=== PATIENT | male | born 2000 | race Caucasian/White ===

== ENCOUNTER 2021-01-30 14:00 | Emergency (ER) | payer BC, SELFPAY ==
--- NOTE | ~2021-01-30 | CT_ITS ---
EXAMINATION: CT abdomen pelvis wo con DATE: 01/30/2021 16:28 INDICATION: Right flank pain TECHNIQUE: Computed tomography (CT) of the abdomen and pelvis was performed without intravenous contr ast. Automated exposure control and iterative reconstruction technique were employed. Exam dose: 165 .01 mGy-cm total exam DLP. COMPARISON: 01/30/2021 KUB FINDINGS: The lung bases are clear. Normal heart size. No pericardial or pleural effusion. The liver, gallbladder, bile ducts spleen, pancreas, pancreatic duct, and adrenal glands are unremark able. No renal mass lesion or scarring or renal calculus. There is a 4.3 x 9 mm distal right ureteral calculus with attenuation of 1020 Hounsfield units. There is mild right hydroureteronephrosis. No other urinary tract calculus. Normal caliber of the abdominal aorta. No intraperitoneal or retroperitoneal or pelvic mass lesion or adenopathy or ascites. Normal appendix. No bowel obstruction or intraperitoneal free air is detected. Included skeletal structures are unremarkable. IMPRESSION: 4.3 x 9 mm distal right ureteral calcified calculus with mild right hydroureteronephrosi s Reviewed, dictated and finalized at [facility] Reviewed, dictated and finalized at [facility] IMPRESSION: 4.3 x 9 mm distal right ureteral calcified calculus with mild righ t hydroureteronephrosis
--- NOTE | ~2021-01-30 | XR_ITS ---
XR abdomen/kub 1V DATE: 01/30/2021 15:52 INDICATION: Right flank pain. History kidney stone. TECHNIQUE: AP view. COMPARISON: None Findings: there is an approximately 3.5 x 6 mm calcification overlying the right ureterovesical area, likely a right ureterovesical junction calcified calculus. No other abnormal calcification is evident. The psoas shadows are intact. No visceromegaly is evident . No bowel obstruction. Included skeletal structures are unremarkable. IMPRESSION: 3.5 x 6 mm probable right ureterovesical junction calcified calculus Reviewed, dictated and finalized at [facility] Reviewed, dictated and finalized at [facility]. IMPRESSION: 3.5 x 6 mm probable right ureterovesical junction calcified calculu s
[2021-01-30 14:28] VITALS: BP 145/82; PULSE 104; RESP 18; TEMP 35.7; O2SAT 97
[2021-01-30 14:48] LABS: Basophils Absolute Auto 0.1 K/mm3 (0.0-0.1); Eosinophils Percent Auto 0.2 % (0-4.4); Hematocrit 44.4 % (42.0-52.0); Hemoglobin 16.2 g/dL (14.0-18.0); Immature Granulocyte Absolute 0.02 K/mm3 (0.00-0.031); Immature Granulocyte Percent A 0.2 % (0-0.5); Lymphocytes Absolute Auto 1.53 K/mm3 (0.9-3.2); Lymphocytes Percent Auto 18.9 % (18.3-44.2); Mean Corpuscular HGB Conc 36.5 g/dl (32-36); Mean Corpuscular Hemoglobin 29.7 pg (26-34); Mean Corpuscular Volume 81.3 fl (80-100); Mean Platelet Volume 8.9 fl (7.4-10.4); Monocytes Absolute Auto 0.4 K/mm3 (0.1-0.6); Monocytes Percent Auto 4.8 % (2.6-8.5); Neutrophils Percent Auto 74.9 % (45.5-73.1); Platelet Count Result 308 k/mm3 (150-375); Red Blood Count 5.46 M/mm3 (4.6-6.20); White Blood Count 8.1 K/mm3 (4.5-10.0)
[2021-01-30 14:59] LABS: Anion Gap 14 mmol/L (8-16); Blood Urea Nitrogen 11 mg/dL (9-20); Calcium 9.7 mg/dL (8.4-10.2); Carbon Dioxide 25 mmol/L (22-30); Chloride 101 mmol/L (98-107); Estimated CRCL calculation 87 ml/min; Estimated Glomerular Filt Rate > 60; Glucose 109 mg/dL (65-110); Sodium 140 mmol/L (137-145)
[2021-01-30 15:32] LABS: Add Urine Microscopic? YES; Appearance Urine Clear (Clear); Bacteria Urine Trace /hpf; Bilirubin Urine Negative (Negative); Blood Urine 3+ (Negative); Color Urine Yellow (Yellow); Glucose Urine UA Negative (Negative); Ketones Urine Trace mg/dL (Negative); Leukocyte Esterase Ur Negative LEU/UL (Negative); Mucus Urine Heavy /lpf; Nitrate Urine Negative (Negative); Protein Urine 1+ mg/dL (Negative); RBC Urine >75 /hpf (0-2); Specific Grav Ur 1.025 (1.001-1.035); Squamous Epithelial Cell Urine Rare /hpf (Few); Urobilinogen Urine Negative mg/dL (<2.0); WBC Urine 0-3 /hpf
--- NOTE | 2021-01-30 16:18 | ED.BACK ---
HPI - Back Pain/Injury General Chief Complaint: Urogenital-Male Stated Complaint: dysuria Time Seen by Provider: 01/30/21 15:21 Source: patient and RN notes reviewed Mode of arrival: ambulatory Limitations: no limitations History of Present Illness HPI Narrative: This is a 20 year old male with history of kidney stones who presents for evaluation of right flank pain. He states he developed constant right flank pain when he woke up this morning. He states his pain does not radiate. He took tylenol this morning without any relief. He has associated nausea and dysuria but he denies fever, chills, hematuria. He rates his pain 7/10. This pain is similiar to his previous episode with a kidney stone. He was diagnosed with a kidney stone on the right 2 months ao but he does not think he passed it. He did not follow up with any physician after diagnosis because his pain resolved. Related Data Allergies Allergy/AdvReac Type Severity Reaction Status Date / Time No Known Allergies Allergy Verified 01/30/21 18:04 Review of Systems Review of Systems: All systems reviewed & are unremarkable except as noted in HPI and below PMFSH Past Medical History Medical History (Updated 01/30/21 @ 17:51 by Katelyn Lipscomb MD) Kidney stone Surgical History Surgical History (Updated 01/30/21 @ 16:22 by Katelyn Lipscomb MD) No pertinent past surgical history Social History Social History (Updated 01/30/21 @ 16:22 by Katelyn Lipscomb MD) Smoking status: Never smoker Exam Const: General: no acute distress and alert Orientation/consciousness: patient oriented x3 Eyes: EOM: EOMs intact bilaterally Chest: Chest palpation & inspection: normal inspection of the chest Resp: Effort & Inspection: normal respiratory effort and no retractions Auscultation: clear to auscultation bilaterally Cardio: Rate: regular rate Rhythm: regular rhythm Heart sounds: no murmurs GI: GI Palp: Yes Soft to palpation, No Tenderness to palpation present (GI) and No Guarding due to palpation present (GI) Auscultation: normal bowel sounds Back/Spine/Pelvis: Back: no CVA tenderness Skin: General skin exam: normal color Rashes: no rashes Neuro: General: patient oriented x3, moves all extremities and CN's II-XI intact bilaterally Psych: Mental Status: mental status grossly normal Affect: normal affect Course Reevaluation(s) Reevaluation #1: Patient states his pain has resolved after morphine. I Discussed CT shows 4 x 9 mm which has likely been present for 2 months. He will likely be unable to pass it. I discussed with patient that he will need to follow up with urologist to get stone removed. Date: 01/30/21 Time: 17:44 Consultations Consultation #1: I Discussed case with DR. Caro who agrees with plan to discharge. Will hold off on NSAIDS and order urine culture Date: 01/30/21 Time: 17:46 Vital Signs Vital signs: Vital Signs Temperature 96.2 F L 01/30/21 14:28 Pulse Rate 104 H 01/30/21 14:28 Respiratory Rate 18 01/30/21 14:28 Blood Pressure 145/82 H 01/30/21 14:28 Pulse Oximetry 97 01/30/21 14:28 Temperature 96.2 F L 01/30/21 14:28 Pulse Rate 104 H 01/30/21 14:28 Respiratory Rate 18 01/30/21 14:28 Blood Pressure 145/82 H 01/30/21 14:28 Pulse Oximetry 97 01/30/21 14:28 MDM - Back Pain/Injury Lab Data Attestation: I reviewed the patient's lab results. Result diagrams: 01/30/21 14:36 01/30/21 14:36 Labs: Lab Results 01/30/21 01/30/21 01/30/21 Range/Units 14:36 14:36 15:18 WBC 8.1 (4.5-10.0) K/mm3 RBC 5.46 (4.6-6.20) M/mm3 Hgb 16.2 (14.0-18.0) g/dL Hct 44.4 (42.0-52.0) % MCV 81.3 (80-100) fl MCH 29.7 (26-34) pg MCHC 36.5 H (32-36) g/dl RDW 12.0 (11.5-14.5) % Plt Count 308 (150-375) k/mm3 MPV 8.9 (7.4-10.4) fl Immature Gran % (Auto) 0.2 (0-0.5) % Neut % (Auto) 74.9 H (45.5-73.1) % Lymph % (Au
[2021-01-30] MEDS: MORPHINE SULFATE (*CRX) 4 MG/ML INJ IV PUSH (16:36)
[2021-01-30] MEDS: ONDANSETRON INJ 4 MG/2 ML VIAL IV PUSH (16:36)
== END 2021-01-30 18:30 | disposition home or self-care (01) ==
PROVIDERS: Family Medicine; Emergency Provider General Practice; PCP Family Medicine
DX: N13.2 Hydronephrosis with renal and ureteral calculous obstruction (principal); Z87.442 Personal history of urinary calculi
CPT/HCPCS: 36415; 74018; 74176; 80048; 81001; 85025; 96374; 96375; 99284; J2270; J2405